=== PATIENT | male | born 1965 | race Asian ===

== ENCOUNTER 2017-12-07 16:24 | Emergency (ER) | payer OTHER ==
[2017-12-07] MEDS ORDERED: ceFAZolin 1 GM in Dextrose (*) 1 GM/50 ML BAG IVPB ONE (16:38)
--- NOTE | 2017-12-07 16:55 | ED ---
Laceration/Wound HPI - HPI Summary HPI Summary: 52-year-old male presents with laceration to right fourth finger. He dropped a stack of tiles onto his finger. 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 Area continues to bleed. Tetanus was 2 years ago. He has no medical conditions. He is nonsmoker. [facility] and [facility]ray showed an open fracture. per urgent care report that patient brought has "acute nondisplaced fracture involving diaphysis of intermediate phalanx." He denies any numbness or tingling. - History of Current Complaint Stated Complaint: RT RING FINGER INJURY Time Seen by Provider: 12/07/17 16:36 Pain Intensity: 5 - Allergy/Home Medications Allergies/Adverse Reactions: Allergies Allergy/AdvReac Type Severity Reaction Status Date / Time No Known Allergies Allergy Verified 07/31/15 10:22 PMH/Surg Hx/FS Hx/Imm Hx Endocrine/Hematology History: Denies: Hx Anticoagulant Therapy, Hx Diabetes Cardiovascular History: Denies: Hx Hypertension - Immunization History Immunizations Up to Date: Yes Infectious Disease History: No Infectious Disease History: Denies: Traveled Outside the [place] in Last 30 Days - Family History Known Family History: Positive: Hypertension - Social History Alcohol Use: None Substance Use Type: Reports: None Smoking Status (MU): Never Smoked Tobacco Review of Systems Negative: Fever Negative: Chest Pain Negative: Shortness Of Breath Positive: Other - finger laceration All Other Systems Reviewed And Are Negative: Yes Physical Exam Triage Information Reviewed: Yes Vital Signs On Initial Exam: Initial Vitals Temp Pulse Resp BP Pulse Ox 97.5 F 87 20 154/106 97 12/07/17 16:28 12/07/17 16:28 12/07/17 16:28 12/07/17 16:28 12/07/17 16:28 Vital Signs Reviewed: Yes Appearance: Positive: Well-Appearing Skin: Positive: Warm, Dry, Other - 4cm by 1cm by 1cm lacedfation to tendon sheath. Head/Face: Positive: Normal Head/Face Inspection Eyes: Positive: Normal, Conjunctiva Clear ENT: Positive: Pharynx normal Respiratory/Lung Sounds: Positive: Clear to Auscultation, Breath Sounds Present Cardiovascular: Positive: Normal, RRR Musculoskeletal: Positive: Strength/ROM Intact - full ROM of right ring finger with pain, Other - capillary refill<2 secs, good pulses, sensation grossly intact Neurological: Positive: Normal Psychiatric: Positive: Normal Procedures - Laceration/Wound Repair 1 Location: Other - right ring finger Description: Irregular Anesthesia: Digital, 1.0% Length, Depth and Shape: 4cm by 1cm by 1cm Irrigated w/ Saline (ccs): 1,000 Laceration/Wound Explored: no foreign body removed Closure: Single Layer Suture Type: Prolene Number of Sutures: 9 - 3 vertical mattress, 5 simple Layer Closure?: No Sterile Dressing Applied?: Yes - xeroform, gauze, coband, and plastic finger splint and eddie tape Diagnostics - Vital Signs Vital Signs Temp Pulse Resp BP Pulse Ox 12/07/17 16:28 97.5 F 87 20 154/106 97 - Laboratory Lab Statement: Any lab studies that have been ordered have been reviewed, and results considered in the medical decision making process. Laceration Repair Course/Dx - Course Course Of Treatment: 52-year-old male presents with laceration to right fourth finger. He dropped a stack of tiles onto his finger. 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 Area continues to bleed. Tetanus was 2 years ago. He has no medical conditions. He is nonsmoker. He was [facility] and xray showed an open fracture. per urgent care report that patient brought has "acute nondisplaced fracture involving diaphysis of intermediate phalanx." on exam has 4cm by 1cm by 1cm laceration of middle phalanx right ring finger. neurovascular intact. gave dose of ancef. extensively irrigated wound. 9 sutures placed with three vertical mattress, 6 simple with PA student [employer] help. placed in finger splint. spoke with dr salmeron for follow up. will place on keflex. warned of signs to return to ED for. patient understand and agrees with plan. - Differential Dx Differental Diagnoses: Avulsion, Laceration, Other - open fracture - Clinical Impression Provider Diagnoses: Open fracture of middle phalanx of finger Discharge - Sign-Out/Discharge Documenting (check all that apply): Patient Departure - Discharge Plan Condition: Good Disposition: HOME Prescriptions: Cephalexin CAP* [Keflex CAP*] 500 mg PO BID #14 cap oxyCODONE TAB* [Roxycodone TAB 5 mg*] 5 mg PO Q6H PRN #12 tab MDD 4 PRN Reason: Pain Patient Education Materials: Care For Your Stitches (ED), Finger Fracture (ED) Referrals: No Primary Care Phys,NOPCP [Primary Care Provider] - Jaret Salmeron MD [Medical Doctor] - Additional Instructions: take keflex twice a day for 7 days Take Tylenol or ibuprofen for pain every 6 hours, use oxycodone for break through pain every 6 hours Keep area clean and dry Keep area in pressure dressing for 48 hours, after 248 hours check for sign of infection and rewrap with dressing for another 24 hours and continue such forth Call office to follow up with ortho Return to ED or primary in 10 days days to have sutures removed Return to ED if develop signs of infection such as fever, spreading redness, or pus. - Billing Disposition and Condition Condition: GOOD Disposition: Home
[2017-12-07] MEDS ORDERED: ceFAZolin 1 GM VIAL(*) ONE (17:03)
[2017-12-07] MEDS ORDERED: Morphine INJ* 2 MG/ML 1 ML SYRINGE (TWO MG - NEW SYRINGE VERSION) IV ONE (17:30)
[2017-12-07] MEDS ORDERED: Ondansetron INJ* 2 MG/ML VIAL IV ONE (17:30)
[2017-12-07 18:20] VITALS: BP 167/90
== END 2017-12-07 18:20 | disposition home or self-care (01) ==
LOC: ED 16:24
DX: S61.214A Laceration without foreign body of right ring finger without damage to nail, initial encounter (principal); W22.8XXA Striking against or struck by other objects, initial encounter; Y92.9 Unspecified place or not applicable
CPT/HCPCS: 12002; 96374; 96375; 99282; J0690; J2270; J2405